=== PATIENT | female | born 1980 | race Caucasian/White ===

== ENCOUNTER → 2021-01-28 | Outpatient (CLI) | payer BC | LOC: MC.RAD 09:40 | DX: Z12.31 Encounter for screening mammogram for malignant neoplasm of breast (principal) ==

== ENCOUNTER → 2024-02-03 | Outpatient (CLI) | payer BC | LOC: MC.RAD 14:27 | DX: Z12.31 Encounter for screening mammogram for malignant neoplasm of breast (principal) ==

== ENCOUNTER → 2024-05-04 | Outpatient (CLI) | payer SELFPAY | LOC: WSPT 09:50 | DX: M54.2 Cervicalgia (principal) ==

== ENCOUNTER → 2024-05-31 | Outpatient (CLI) | payer SELFPAY | LOC: WSPT 15:33 | DX: M54.2 Cervicalgia (principal) ==

== ENCOUNTER → 2024-06-07 | Outpatient (CLI) | payer SELFPAY | LOC: WSPT 16:20 | DX: M54.2 Cervicalgia (principal) ==

== ENCOUNTER → 2024-06-14 | Outpatient (CLI) | payer SELFPAY | LOC: WSPT 15:39 | DX: M54.2 Cervicalgia (principal) ==